=== PATIENT | male | born 2000 | race Hispanic/Latino ===

== ENCOUNTER → 2020-11-28 | Emergency (ER) | payer MEDICAID, OTHER ==
[~2020-11-28] VITALS: Ht 165.1 cm; Wt 74.8 kg
== END | disposition left against medical advice (07) ==
LOC: EDH 23:29
DX: R51.9 Headache, unspecified (principal); R53.83 Other fatigue; Z53.21 Procedure and treatment not carried out due to patient leaving prior to being seen by health care provider